=== PATIENT | female | born 2005 | race Caucasian/White ===

== ENCOUNTER 2024-11-20 18:19 | Emergency (ER) | payer OTHER, SELFPAY ==
[2024-11-20 18:19] VITALS: BP 136/85; PULSE 98; RESP 14; TEMP 36.1; O2SAT 98; BMI 33.2
[2024-11-20 19:19] VITALS: BP 119/74; O2SAT 99
[2024-11-20 20:00] VITALS: BP 105/60; PULSE 90; RESP 16; O2SAT 97
--- NOTE | 2024-11-20 20:03 | EDS_ITS ---
HPI HPI - Psych History of Present Illness Chief Complaint: Suicidal Informant: patient Onset/Context/Timing Onset: Days Context: Gradual Onset Timing: Waxes and wanes Worsened by: - (Nothing) Relieved by: Nothing Associated Symptoms Associated Symptoms - Psych: Positive for Depressed, Change in Eating, Change in sleeping and Suicidal Thoughts; Negative for Paranoia, Visual Hallucinations or Auditory Hallucinations Specific plan (suicidal thought): Overdosing on medication Narrative Narrative: Patient presents with suicidal ideations that have been gradually getting worse over the past several weeks to months. Patient states she has had thoughts of taking medications. Patient states she has been feeling depressed. Patient states nothing makes it better and nothing makes it worse. Patient states she feels overwhelmed at times. Patient states she has not been sleeping as much as normal. Patient states that her eating habits have also changed. Patient states that she will go without eating for a long period and then will eat a lot or a short period of time. [facility] Medical History Anxiety Depression Home Medications ?Medication ?Instructions ?Recorded ?Last Taken ?Type NK 11/20/24 Unknown History Allergy/AdvReac Type Severity Reaction Status Date / Time No Known Allergies Allergy Verified 11/20/24 18:19 no surgical history Social History (Updated 11/20/24 @ 22:[address] Jose Mejia, DO) Smoking Status: Unknown if ever smoked alcohol intake: current alcohol intake frequency: a few times a month substance use type: marijuana ROS ROS ED Constitutional Constitutional ED: Denies chills or fever(s) Eyes Eyes: Denies blurry vision or change in vision ENT ENT ED: Denies rhinorrhea or sore throat Cardiovascular Cardiovascular: Reports chest pain; Denies palpitations Respiratory/Chest Respiratory/Chest: Denies cough or dyspnea Gastrointestinal Gastrointestinal: Reports nausea; Denies vomiting Genitourinary Genitourinary ED: Denies dysuria or hematuria Musculoskeletal Musculoskeletal: Reports back pain; Denies neck pain Integumentary Denies abscess or rash Neurologic Neurologic: Reports headache(s); Denies weakness Psychiatric Psychiatric: Reports depression, suicidal ideation and suicidal thoughts Allergic/Immunologic Allergic/Immunologic ED: Denies mouth swelling or urticaria EXAM Physical Exam Const Vital Signs: 11/20/24 18:19 Temperature 97 F L Temperature Source Temporal Pulse Rate 98 Respiratory Rate 14 Blood Pressure 136/85 H Blood Pressure Mean 102 Pulse Ox 98 Oxygen Delivery Method Room Air Positive well nourished and well developed General Appearance ED: well developed and NAD HEENT Reports moist mucous membranes normocephalic Neck supple and no JVD Resp normal respiratory effort and clear to auscultation bilaterally Cardio Rate: regular rate Rhythm: regular rhythm GI non-tender and non-distended Palpation: soft Neuro oriented x3, CN's II-XII intact bilaterally and no sensory deficits noted Ren Coma Scale: document GCS findings Spontaneous Obeys Commands Oriented 15 Sensorium / Orientation: alert Motor Exam: strength 5/5 throughout Psych Appearance: grossly normal and appropriate Attitude: calm Activity / Motor Behavior: appropriate eye contact Speech: normal speech Mood & Affect: depressed and flat affect Thought Content: No delusion(s) and No hallucination(s) MDM MDM MDM Narrative Medical decision making narrative: Medical screening labs will be obtained. CBC will be obtained to assess for leukocytosis and anemia. Basic metabolic profile will be obtained to assess for electrolyte abnormality and renal function. Serum hCG will be obtained to assess for . Serum alcohol level will be obtained to assess for alcohol intoxication. Urine drug screen will be obtained to assess for substance abuse. Lab Data Attestation: I reviewed the patient's lab results. Lab results narrative: CBC was reviewed and was within normal limits. Basic metabolic profile was reviewed and was within normal limits. Serum hCG was reviewed and was negative. Urine drug screen was reviewed and was positive for cannabinoids. Serum alcohol level was reviewed and was less than 10.1. Management Discussion w/another healthcare provider: Behavioral health Treatment and Re-Evaluation Narrative: Patient is medically cleared for crisis evaluation. Crisis counselor was in to evaluate the patient. Crisis counselor felt the patient could be discharged home with a safety plan. Patient's partner will control her medications. Patient will be referred to [facility] for follow-up care. Patient and partner understood and were agreeable with the plan. All questions were answered. Discharge Plan Triage Chief Complaint: Suicidal ED Provider: Jose Mejia Dx/Rx/DC Orders Clinical Impression: Depression, Suicidal thoughts Instructions: ED Depression Prescriptions: No Action NK Primary Care Provider: Care Physician,No Primary Referrals: Counseling,Center [Group of Physicians] - As soon as possible Care Physician,No Primary [Primary Care Provider] - Print Language: Ghanaian Disposition Disposition: Home, Self Care
[2024-11-20 20:12] LABS: Hematocrit 42.6 % (37-47); Hemoglobin 14.4 g/dL (12.0-15.0); Immature Granulocytes Count 0.030 X10^3/uL (0.0-0.0); Mean Corp Hgb Conc 33.8 g/dL (32-36); Mean Corpuscular Volume 84.0 fL (81-99); Mean Platelet Vol. 10.0 fl (6.2-12.0); NRBC Flagged by Analyzer 0 % (0-5); Platelet Count 306 K/mm3 (150-450); RBC Distribution Width CV 12.4 % (11.6-14.6); RBC Distribution Width SD 37.7 fl (35.1-43.9); Red Blood Count 5.07 M/mm3 (4.2-5.4); White Blood Count 9.7 K/mm3 (4.4-11.0)
[2024-11-20 20:18] LABS: Internal QC Validated? YES +Cl - CLEAR BKGD; Pregnancy, Serum, hCG Quali. NEGATIVE Negative; Record Kit Lot#, Serum Preg. 962302
[2024-11-20 20:29] LABS: Alcohol, Blood (Medical)-Serum < 10.1 mg/dL (<=10.0); Anion Gap 15 (5-15); BUN 12 mg/dL (4-19); BUN/Creat Ratio 15.2 RATIO (10-20); Calcium,Total 10.4 mg/dL (7.6-11.0); Carbon Dioxide 21.2 mmol/L (21.0-32.0); Chloride 104 mmol/L (98-108); Estimated Creatinine Clearance 111.95 ml/min (50-250); Glucose 97 mg/dL (70-99); Potassium 3.7 mmol/L (3.3-5.1)
[2024-11-20 20:41] LABS: Barbiturate Urine NEGATIVE (< 200 ng/mL); Benzodiazepine Urine NEGATIVE (< 200 ng/mL); PCP Urine NEGATIVE (< 25 ng/mL); THC Urine PRESUMPTIVE POSITIVE (< 50 ng/mL)
--- NOTE | 2024-11-20 20:59 | PCA ---
CHART FAXED, CRISIS CALLED
[2024-11-20 21:00] VITALS: BP 119/77; PULSE 86; O2SAT 97
[2024-11-20 22:00] VITALS: BP 119/70; O2SAT 98
[2024-11-20 22:38] VITALS: BP 107/57; PULSE 86; RESP 16; TEMP 36.1; O2SAT 97
== END 2024-11-20 22:42 | disposition home or self-care (01) ==
PROVIDERS: Emergency Provider Emergency Medicine; Visit Provider Emergency Medicine
DX: R45.851 Suicidal ideations (principal); F32.A Depression, unspecified; Z79.899 Other long term (current) drug therapy
CPT/HCPCS: 80048; 80307; 82077; 84703; 85025; 99283

== ENCOUNTER 2024-11-24 08:00 | Outpatient (RCR) | payer OTHER, SELFPAY ==
--- NOTE | 2024-11-24 09:05 | BH.SGPN.GN ---
Behaviors/Verbalizations/Mental Status: [] Eye contact is good. Motor activity is appropriate. Appearance is casual. Speech is Appropriate. Mood is euthymic. Affect is full. Thoughts are linear and logical. No evidence of psychosis. Reviewed daily check in sheet and pt reports 4/5 for suicidal thoughts and 3/5 for intent. Risk assessment completed prior to group. No imminent danger. Client Response/Progress/Benefit: [] Pt was an active participant in group discussions. Attentive. Daily symptom tracker notes 4/5 for depression/anxiety. This was pt?s first day in IOP level of care and she briefly introduced herself and her goals for treatment. States? ?I?ve had a hard time recently?. Admits to she ?stopped? going to mental health treatment in the past several month and then recently began to decompensate to the point where ?I needed immediate help?. Primary concerns are anxiety, stress, and depression. No progress noted as this was her first day. Benefited from group support, encouragement, and feedback. Will continue in [facility] to maintain safety, prevent decompensation, and increase healthy coping. Narrative Note: [] Behaviors/Verbalizations/Mental Status: [] Eye contact is good. Motor activity is appropriate. Appearance is casual. Speech is Appropriate. Mood is euthymic. Affect is full. Thoughts are linear and logical. No evidence of psychosis. Reviewed daily check in sheet and no reports of suicidal ideations or intent. Client Response/Progress/Benefit: [] Narrative Note: []
--- NOTE | 2024-11-24 10:10 | BH.SGPN.GN ---
Behaviors/Verbalizations/Mental Status: [] Eye contact is good. Motor activity is appropriate. Appearance is casual. Speech is Appropriate. Mood is anxious. Affect is congruent. Thoughts are linear and logical. No evidence of psychosis. Client Response/Progress/Benefit: [] Pt engaged in session AEB listening attentively to others and providing input throughout. Pt engaged in activity, able to connect how it can be uncomfortable and difficult to practice acceptance when situations are out of one?s own control. Identified what they are struggling to accept in personal life. Worked with peer group to define acceptance and identify the benefits that acceptance can bring. Benefits included; reduce stuckness, reduced stress, helps one to focus on situations we can change, and decreased negative self-talk. Seemed to benefit from increased awareness of the meaning as well as the importance of acceptance. Will continue in IOP to decrease anxious avoidance, improve healthy coping, and prevent decompensation.
--- NOTE | 2024-11-24 11:15 | BH.SGPN.GN ---
Behaviors/Verbalizations/Mental Status: []Pt alert and oriented, casually dressed and groomed. Eye contact good. Motor activity appropriate. Speech within normal limits. Affect congruent, mood content. Thoughts linear, logical, no signs of hallucinations or delusions. Client Response/Progress/Benefit: [] Pt responded well to session AEB taking notes and contributing to discussion throughout. Pt engaged as group continued discussion on acceptance and the mental health benefits of practicing acceptance. Pt and peers identified what makes acceptance challenging and pt completed a self-reflection exercise on what is hard to accept in pt's life. Pt identified something that is currently hard to accept as finding a new place to live. Client stated by not accepting this it leads to anxiety and stress. Group identified strategies to increase acceptance. Pt noted wanting to work on trying to find positives in the situation as a strategy for improving acceptance in this area. Pt appeared to benefit from gaining insight and learning strategies to increase acceptance. Pt will continue IOP tx to improve view of self, increase mood stability, and prevent decompensation. Narrative Note: []
--- NOTE | 2024-11-24 15:56 | BH.MTP_ITS ---
Master Treatment Plan Patient Information Program Physician:: Dr. Winston Primary Therapist:: Amalia Yuan [facility] Psychiatric Diagnoses Psychiatric Diagnoses:: MDD (major depressive disorder), recurrent episode, severe Generalized Anxiety Disorder Diagnosis Code(s):: F33.2 Estimated LOS Estimated LOS (in weeks):: 6 Problem/Goal #1 Problem/Goal #1 Stated Goal:: Stabilize anxiety level while increasing ability to function on daily basis. Description of Barriers: Potential barriers to treatment include: distorted thoughts, low motivation, low energy, and avoidance of anxious situations. Functional Impact: Patient was seen in [facility] ED for SI and worsening depression 11/20/2024 and assessed by [facility] crisis team and was referred to [facility]. PT has struggled with her mental health since high school and had further decline starting last January 2024 after her fianc? attempted suicide and has slowly decompensated since that time. Also had increased anxiety triggered by starting a new job July 2023 and around the same time patient stopped taking their medicine due to loss of insurance coverage. Pt endorses low motivation, anhedonia, poor concentration, excessive guilt, poor appetite, and decreased sleep. Objectives Objective #1: Stated Objective: Client will learn and implement 2-3 calming skills to reduce overall anxiety and manage anxiety symptoms. Interventions: Therapist and group sessions will help client identify physiological warning signs of anxiety, increase awareness of thoughts that increase anxiety, and identify behaviors that reinforce anxious symptoms. Group and individual counseling will teach client calming skills to help manage anxious symptoms. Discharge Criteria: Client will have achieved this goal when can verbalize at least 2 calming skills and reports skills successfully help reduce anxious symptoms. Target Date: 01/05/25 Review Date: 12/22/24 Objective #2: Stated Objective: Client will identify 2-3 anxiety triggers and 2 coping skills to use when feeling anxious. Interventions: Therapist will assist client in exploring what triggers anxiety and teach client coping strategies to effectively manage anxiety symptoms. Discharge Criteria: Client will have met this goal when can identify at least 2 triggers to anxiety and verbalize two healthy ways to cope with feelings of anxiety. Target Date: 01/05/25 Review Date: 12/22/24 Problem/Goal #2 Problem/Goal #2 Stated Goal:: Client will decrease depression, low motivation, and passive thoughts of due to Major Depression Disorder through Intensive Outpatient Program. Description of Barriers: : Potential barriers to treatment include: distorted thoughts, low motivation, low energy, and avoidance of anxious situations. Functional Impact: Patient was seen in [facility] ED for SI and worsening depression 11/20/2024 and assessed by [facility] crisis team and was referred to IOP. PT has struggled with her mental health since high school and had further decline starting last January 2024 after her fianc? attempted suicide and has slowly decompensated since that time. Also had increased anxiety triggered by starting a new job July 2023 and around the same time patient stopped taking their medicine due to loss of insurance coverage. Pt endorses low motivation, anhedonia, poor concentration, excessive guilt, poor appetite, and decreased sleep. Objectives Objective #1: Stated Objective: Client will learn and utilize 2-3 healthy coping strategies to manage depressive symptoms. Interventions: Therapist will utilize CBT techniques to assist client with understanding the connection between thoughts, feelings and behaviors. Education will be provided on behavioral activation. Therapist will assist client in learning internal coping strategies to manage depressive symptoms, along with helping client identify triggers. Discharge Criteria: Client will have achieved this goal when can verbalize and has practiced at least 2 healthy coping strategies that successfully manage depressive symptoms. Target Date: 01/05/25 Review Date: 12/22/24 Objective #2: Stated Objective: Client will identify and replace 2-3 negative thinking patterns that reinforce depressive symptoms. Interventions: Therapist will assist client in developing an awareness of the cognitive messages that reinforce depressive thinking. Therapist will also assist client in challenging negative thinking patterns. Discharge Criteria: Client will have achieved this goal when can identify at least 2 negative thinking patterns, replace negative thinking with more positive, affirmative messages and state no longer having thoughts of hurting self. Target Date: 01/05/25 Review Date: 12/22/24
--- NOTE | 2024-11-25 08:24 | PCM.BH.PSYEV ---
Intake Vital Signs 11/20/24 18:19 11/25/24 08:24 11/25/24 09:45 Height 1.55 m 1.55 m 1.55 m Weight: 74.843 kg BP 121/75 H Pulse 69 Intake Visit Reasons: est care MDD and SI Allergies No Known Allergies Allergy (Verified 11/25/24 09:47) Medications ?Medication ?Instructions ?Recorded ?Confirmed ?Type fluoxetine 10 mg capsule (Prozac) 10 mg PO DAILY #30 caps 11/25/24 Rx PFSH () Medical History Anxiety Depression Social History (Updated 11/20/24 @ 22:[address] Jose Mejia, DO) Smoking Status: Unknown if ever smoked alcohol intake: current alcohol intake frequency: a few times a month substance use type: marijuana HPI () History of Present Illness History provided by: patient Chief complaint: Hx GETACHEW, MDD, SI HPI: Jessica is a 19y/o female who uses they/them pronouns who presented to [facility] IOP program for further evaluation and treatment of depression, anxiety, SI. Patient was seen in [facility] ED for SI and worsening depression 11/20/2024 and assessed by [facility] crisis team and was referred to IOP. Jessica has struggled with her mental health since high school and had further decline starting last January 2024 after her fianc? attempted suicide and has slowly decompensated since that time. Also had increased anxiety triggered by starting a new job July 2023 and around the same time patient stopped taking their medicine due to loss of insurance coverage. Reports being pretty tired today and that they have had low mood and low energy with a lot of stressors as above. Did recount with me that last January? attempted suicide when she had to get them to the ED and has had nightmares about that since and subsequently stopped going to therapy and stopped taking care of themselves. Then stopped Lexapro as above. Notes the Lexapro made them less anxious but those around patient thought it made them more aloof and that they had lower motivation. Given all of this in combination with job stress their anxiety has been very high. Anhedonia/Decreased interest: Was present, beginning to enjoy things again like spending time with friends and picking up hobbies again Appetite: Poor appetite in association with anxiety Sleep: Not sleeping as much as before Energy: Has not noticed a drastic change in energy despite some decrease in sleep Concentration: Easily distracted Memory: When anxious it causes memories to be fuzzy Guilt: Feels very guilty a lot of the time even if there are things they don't feel they should feel guilty about, they report saying I am sorry very often to the point their partner has pointed out Crying spells: Has had more crying spells recently SI: Not in the moment, has been having some thoughts of harming themselves this past week, mostly thoughts of not wanting to exist, no active thoughts HI: No AH: No VH: No Psychosis: No Mariama: Went through periods where they didn't need to sleep much during beginning of high school but isn't sure if there were any activities out of character, says they don't really remember the first two years of high school Anxiety: We would be here all day if I had to make a list [of things that make them anxious]. 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 Sometimes the episodes occur randomly sometimes they occur due to stressors OCD: Sometimes asks questions repetitively but no additional criteria Eating d/o hx: No PTSD: Has been having nightmares and flashbacks from berna's suicide attempt and will avoid certain streets they drove down when going to the hospital at time as that can be triggering, symptoms have not been improving Current psychiatric medications: None Past psychiatric treatment Hx: -First age experiencing symptoms: Has experienced symptoms since at least high school -Previous diagnoses:GETACHEW, depressive tendencies -Psychiatrist: Stopped following after the suicide attempt from their fiance -Therapist: Was following with 1 but stopped around 6 months ago with all of the stressors going on -Psychiatric hospitalizations: Denies -Suicide attempts: Denies -NSSI: Sometimes scratching or hitting self -Medication trials: Only lexapro 10mg, no other medication trials. As above this helped with anxiety but caused low motivation and made them aloof Medical Hx: -Medical problems: Denies -Surgeries: No -Allergies: No -Medications:None Substance use Hx: -Alcohol: Socially -Drugs: Uses marijuana 5 days per week, more so recently since they stopped taking their medications, never uses at work, only occasionally in the evenings -Rehab: No -Tobacco use: No Family Hx: -Mental illness: Dad takes some sort of SSRI, possible bipolar disorder in grandma and/or great grandma, younger sister and older sister had to be psychiatrically hospitalized, great-grandmother also was hospitalized multiple times -Suicide attempts or completions: They are unsure but thinks there have been -Substance Use: A lot of alcoholics in the family on mom's side. Reports mom was an alcoholic but presently is not drinking -General medical conditions: Dad has some liver issues, diabetes in grandparents, grandpa with lung cancer Psychosocial: -Born/raised: [place], [place] -Childhood: Not horrible. Reports memory starts around 2, remembers losing their house then had to move in with grandma who was a hoarder so has some memories of a stressful childhood, remembers being someone lonely, not into sports and couldn't really have many people over because she lived with grandma. Also notes mental health struggles and that family and teachers seem to brush this off and they were unable to get help -Parents: [place] like her parent prioritized her sisters physical health over her mental health. Mom and dad are now -Siblings: Has a half sister 10 years older and a sister four years younger who she grew up with, starting to have a better relationship with younger sister but does report jealousy over her parents taking her mental health seriously but not patient's -Current living situation and location: Living in [place] with grandma, mother, sister, and significant other, Js, a cousin still lives with them, too. 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, likes her colleagues but gets very anxious over her job -Yazidism affiliation: Denies, vaguely spiritual, vaguely agnostic - hx: No -Access to guns: No -Legal problems: No Medical ROS: General: Denies fever HENT: Denies headache EYES: Denies acute changes in vision Resp: denies shortness of breath Cardiac: Denies chest pain GI: denies changes in bowel, denies nausea/vomiting : Denies changes in urination MSK: Denies weakness Neuro: Denies any numbness/tingling Heme: Denies any bleeding or bruising Skin: Denies rashes Psychiatric: As above Exam () Mental Status Exam- Psych () Appearance casually dressed, adequately groomed and no apparent distress Attitude cooperative and calm Activity/Motor Behavior MSE activity/motor behavior finding no adventitious movements Speech regular rate and regular volume Mood anhedonic Affect full range Thought Process linear and logical Thought Content no delusions and no hallucinations Suicidal Ideation none Homicidal Ideation none Attention intact Concentration intact Sensorium/Orientation awake and alert Memory/Cognition intact Insight fair Judgement fair Assessment & Plan () Assessment & Plan (1) MDD (major depressive disorder), recurrent episode, severe: Plan: Depressed mood, intermittent SI, decreased appetite, poor sleep, poor concentration, crying spells, anhedonia. Suspect patient has MDD as well as GETACHEW. Agreeable to trialing Prozac, will start at low-dose and uptitrate as tolerated, discussed black box warning for SSRI and patient verbalized understanding. (2) GETACHEW (generalized anxiety disorder): Plan: Patient anxiety in multiple aspects of their life that has persisted greater than 6 months, this does cause difficulty with concentration and sleep and being on edge. Will be starting Prozac, discussed black box warning for SSRIs in those under 24 and patient verbalized understanding - Will monitor for symptoms meeting criteria for panic disorder, patient does not meet full criteria but certainly has aspects of the diagnosis, will be treating with Prozac as above which should help all of the above symptoms Medications: New fluoxetine 10 mg PO DAILY 30 caps 0RF Plan Detail Assessment: The patient will begin IOP in Behavioral Health at [facility]. The program's structure, support, education, and therapy aim to prevent deterioration of symptoms and avoid the need for PHP or inpatient hospitalization. I have a reasonable expectation that the patient will make practical improvements in their presenting symptoms and will be discharged to a lower level of care. Charges/Coding Multi Select Codes Behavior Health Behavior Health Psychiatric Evaluation: [id number] Psych Diag Exam w/ Medical Services
--- NOTE | 2024-11-25 08:24 | BH.DR.ITP ---
Initial Treatment Plan Patient Information Visit Information: ADMISSION DATE: EXPECTED LOS: 6-8 weeks Diagnoses:: MDD, GETACHEW Problems/Symptoms Problem #1:: GETACHEW Symptom:: anxiety in multiple aspects of their life that has persisted greater than 6 months, this does cause difficulty with concentration and sleep and being on edge Symptom:: MDD Problem #2:: Depressed mood, intermittent SI, decreased appetite, poor sleep, poor concentration, crying spells, anhedonia
--- NOTE | 2024-11-25 09:20 | BH.NA ---
Physical Data Vital Signs Pulse Rate: 69 Blood Pressure: 121/75 Height/Weight Height: 1.55 m Weight:: 74.843 kg Weight in Pounds: 165.0 lbs Functional Assessment Sleep Pattern Describe any problems with sleeping: Client states they have been sleeping 5-8 hours per night. Sensory/Communication Assess Vision Problems Do you have any vision problems?: Glasses Communication Problems Do you have difficulty understanding what people are saying?: No Medical Problems/History Pain Assessment Do you have acute or chronic pain?: No Surgical History Surgical History Have you had any surgeries? If so, list type and date:: No Substance Abuse Substance Abuse Please describe substance abuse in the last 30 days:: Client states they drink alcohol 1-2 times per month socially. Client denies tobacco use. Client uses marijuana about 5 times per week. Client drinks 2-3 cans of pop per day with caffeine. Mental Status Summary Mental Status Significant Findings/Observations on Appearance and Mood:: Client is alert and oriented x 4. Client is casually groomed with good hygiene. Client is cooperative with assessment. Client makes good eye contact. Clients voice has normal rate and volume. Client has appropriate affect. Client makes logical associations and has normal processing. Client denies delusions/hallucinations. Client reports some passive SI at times, but denies active thoughts/plan/intent. Suicide Assessment Suicidal Ideation Are you currently or have you been suicidal in the past?: Yes Suicidal Intentional Rating Scale (SIRS): Suicidal thoughts (past) (passive thoughts of at times, denies plan/intent) Physician Notification Past Psychiatric History MH Treatment Hx Past Psychiatric Medications:: Lexapro (10mg, was on for about 1 year and stopped taking earlier this year) Age of first mental health symptoms: Client reports symptoms of anxiety/depression since high school. Client started medication for mental health around age 18. Describe (age, circumstance, etc) any past hospitalizations: None. Current providers for mental health treatment (counselor, psychiatrist, manager case, etc.): has had a therapist and psychiatrist in the past but none currently Fall Risk Assessment Age Age: Less than 60 Mental Status Mental Status: Willing & able to ask for assistance when needed Physical Status Physical Status: No problems Impairments Impairments: None Elimination Elimination: Continent AND independent Gait or Balance Gait or Balance: Walks independently Hx of Falls History of falls in the past 6 months: No known history Medications/Substances Medications/substances used within the past 24 hours or ordered to administer: None of the medications/substances list above Total Score Total Points:: 0 RN Summary of Impressions Impressions Recommendations Impressions: Psychiatric Issues: major depressive disorder, anxiety Level of Care How do the client's current symptoms and functional deficits support need for this level of care?: Client was referred to IOP after seeing Crisis in the [facility] ER on 11/20/24 after having suicidal thoughts. Client reports feeling an increase in stress after her partner had a suicide attempt in January 2024. Client reports guilt and worry since then. 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 Client reports occasional panic attacks. Client states since the ER visit, some passive thoughts of have been occurring but denies plan/intent. IOP will promote gains and prevent further decompensation while providing social support and skills training. Nutritional Screen Height/Weight Height: 1.55 m Weight:: 74.843 kg Weight in Pounds: 165.0 lbs Nutrition Screening Normal Weight: 74.843 kg Normal/Usual Weight in Pounds: 165.0 lbs Have you lost weight without trying: No Have you been eating poorly because of a decreased appetite: No Recently been on tube feeds, TPN, or have any nutritional access device in place: No Have any large open wounds or wounds that are not healing: No Calculated Weight Change: 0 Change in weight Score: 0 MST Screening Tool Score: 0
[2024-11-25 09:45] VITALS: BP 121/75; PULSE 69
--- NOTE | 2024-11-25 10:10 | BH.SGPN.GN ---
Behaviors/Verbalizations/Mental Status: []Pt alert and oriented, casually dressed and groomed. Eye contact good. Motor activity appropriate. Speech within normal limits. Affect congruent, mood depressed. Thoughts linear, logical, no signs of hallucinations or delusions. Client Response/Progress/Benefit: [] Pt responded well to session AEB sharing and listening attentively to others. Group provided examples of types of support (professional, pets, hobbies, community, spouse, benoit, etc) as well as benefits of having social support, including: validation, get perspective, and accountability. Pt also participated in group discussion regarding the barriers to accessing support and pt?s barriers included; feeling ?annoying,? being scared to open up, and over relying on one support. Pt participated in experiential activity illustrating the impact communication, boundaries, and patience play in creating healthy support systems. Pt appeared to benefit from increased knowledge of the benefits of social support and greater self-awareness. Pt to continue IOP to prevent decompensation, improve daily functioning, and combat negative thinking. ?? Narrative Note: []
--- NOTE | 2024-11-25 11:15 | BH.SGPN.GN ---
Behaviors/Verbalizations/Mental Status: []Client alert and oriented, casually dressed and groomed. Eye contact good. Motor activity appropriate. Speech within normal limits. Affect congruent, mood dysthymic. Thoughts linear, logical, no signs of hallucinations or delusions. Client Response/Progress/Benefit: [] Pt participated throughout AEB contributing to discussion, providing examples, and taking notes. Pt provided input during discussion on the types of support our supports can provide. Pt able to identify current support system and barriers that get in the way of using supports. Pt reported after identifying what type of supports pt receives, pt gained awareness that pt could benefit from more social support by putting more effort into consistently reaching out to supports. Pt seemed to benefit from identifying the type of support pt needs to work on improving. Pt recommended to continue IOP tx to promote increase positive self-talk, improve healthy communication, and prevent decompensation. Narrative Note: []
--- NOTE | 2024-11-29 09:05 | BH.SGPN.GN ---
Behaviors/Verbalizations/Mental Status: [] Eye contact is good. Motor activity is appropriate. Appearance is casual. Speech is Appropriate. Mood is anxious. Affect is congruent. Thoughts are linear and logical. No evidence of psychosis. Reviewed daily check in sheet and pt reports 2/5 for suicidal ideations and 1/5 for intent. This has been close to baseline for patient. Meeting with individual therapist today. Client Response/Progress/Benefit: [] Pt was an active participant in group discussions. Attentive. Daily symptom tracker notes 3/5 for depression and irritability. Shared she was prescribed and started a new medication this weekend. She is hopeful. Discussed recent decompensation after stopping a medication. Low energy and motivation this weekend. I didn't do much this weekend. Struggled to identify mental health wins and healthy habits. Isolative and avoidance behaviors. She shared anxiety around her job which she is currently on leave from. 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 This can leave to significant anxiety and fear that shw will make a mistake. Overall she loves the work environment and believes the job will lead to future opportunities however is struggling with the anxiety it causes. No progress noted. Benefited from group support, encouragement, and feedback. Will continue in IOP to maintain safety, prevent decompensation, increase healthy skills, and improve functioning to return to work. Narrative Note: []
--- NOTE | 2024-11-29 10:10 | BH.SGPN.GN ---
Behaviors/Verbalizations/Mental Status: []Pt alert and oriented, neatly dressed and groomed. Eye contact good. Motor activity appropriate. Speech within normal limits. Affect constricted, mood calm. Thoughts linear, logical, no signs of hallucinations or delusions. Client Response/Progress/Benefit: [] Pt was an active participant AEB taking notes and engaging in group activity. Connected with the topic of pitfalls and listened to group discussion on barriers that prevent from choosing a healthier path to mental wellness. Group worked together to identify examples of personal pitfalls. These examples included; shutting down, not asking for help, negative thinking patterns, avoidance, and isolation. Pt benefited from group as Pt learned to better identify potential barriers to improving mental health symptoms. Identified personal barrier of negative thinking and avoidance. Pt will continue IOP tx to prevent decompensation, improve daily functioning, and increase distress tolerance. ? Narrative Note: []
--- NOTE | 2024-11-29 11:10 | BH.SGPN.GN ---
Behaviors/Verbalizations/Mental Status: []Client alert and oriented, casually dressed and groomed. Eye contact good. Motor activity appropriate. Speech within normal limits. Affect congruent, mood content. Thoughts linear, logical, no signs of hallucinations or delusions. Client Response/Progress/Benefit: [] Pt receptive of session, engaged throughout AEB Pt actively listening and contributing to discussion as well as taking notes.? Pt participated in the experiential activity and did well to communicate ideas with peers and manage emotions. Pt attentive as group processed how the emotions and perspective of the group impacted the activity. Pt admitted that they were frustrated at times, but pt was able to thought challenge and take deep breaths to complete the activity with peers. Group worked together to identify different coping skills to help manage pitfalls. Pt identified a pitfall they struggle with as ?fear of failure?. Pt plans to work on their pitfall by challenging themselves to reach out for help when needed, as well as identify small areas of progress. Benefited from identifying personal pitfalls and strategies to overcome these pitfalls. Pt will continue IOP tx to prevent decompensation, improve daily functioning, and increase healthy communication. ? Narrative Note: []
--- NOTE | 2024-11-29 13:35 | BH.MDN ---
Multi-Disciplinary Note Note 60-min Individual: Time Started:: 12:00 Date: 11/29/24 Purpose of session/treatment goals addressed:: Purpose of session was to build rapport, gather background information, and solidify treatment goals. Eye Contact:: Good Motor Activity:: Restless Appearance:: Casual Speech:: Appropriate Mood:: Anxious Affect:: Congruent Thoughts:: Linear, Logical and No evidence of hallucinations/delusions noted Staff Interventions:: CBT techniques, rapport building, strengths perspective, treatment planning and goal setting Client Response:: Client goes by they/them pronouns. Note will reflect preferred pronouns. Client reported so far they are enjoying IOP and have found benefit to being in a group format. Client stated they find it helpful to hear from other perspectives. Client reported seeking treatment due to being seen in [facility] ED for SI and worsening depression 11/20/2024 and assessed by [facility] crisis team and was referred to [facility]. Client reported decline in mental health starting last January 2024 after their fianc? attempted suicide and has slowly decompensated since that time. Client stated July 2023 started a new job that has triggered significant anxiety. Client reported their anxiety has been impacting work functioning and currently hasn't been to work in over a week due to anxiety. Client stated they tend to utilize distraction skills as a way to cope with her emotions. Client admitted they can spend copious amounts of time on social media and their phone. Client recognizes this tends to provide the short term relief, but not long lasting. Client reported they also enjoy playing video games and doing various types of crafting/drawing/etc. Client stated they haven't been as creative lately due to feeling more difficulty with concentration. Client reported a goal they have while in IOP is to gain improve awareness of reasons behind their emotional experience. Client stated would also like to learn better ways to manage their symptoms and emotions. Client reported they have good insight in certain areas, but lack the ability to know what to do to manage the symptoms. Client receptive to learning about guided meditation. Client stated they do use 4-4-4 breathing as a way to calm down and finds it helpful. Client willing to complete goal tracker that they will fill out every time come to IOP. client identified three things to track which includes: brushing teeth daily, cooking 3-4 meals at home per week, and completing one drawing at least once a week. Risks/Concerns:: Denies current suicidal ideation, plan, or intention to date. future oriented. Progress Toward Goals/Plan:: Progress noted with client reporting benefit from group counseling, reporting improved energy today, and not reporting suicidal thoughts today. Client anxiety has been impacting ability to function at work and they have missed a week of work due to MH. Client is unsure they will be able to return to this job due to the negative impact it has on their mental health. Client stated does have constant worries about everything. Client reported More panic attacks recently. Plan is for client to continue IOP to increase healthy coping, improve daily functioning, and prevent decompensation. Time Stopped:: 13:00
--- NOTE | 2024-11-30 09:05 | BH.SGPN.GN ---
Behaviors/Verbalizations/Mental Status: [] Eye contact is good. Motor activity is appropriate. Appearance is casual. Speech is Appropriate. Mood is euthymic. Affect is full. Thoughts are linear and logical. No evidence of psychosis. Reviewed daily check in sheet and pt reports 2/5 for suicidal thoughts and 1/5 for intent. This has been pt's baseline since admission and risk assessment. No imminent danger. Client Response/Progress/Benefit: [] Pt was an active participant in group discussion. Attentive. Daily symptom tracker notes 3/5 for depression and anxiety. SI-2, I-1. She was able to identify mental health wins and healthy habits. Re-engaging in a social support network. She has also returned to creative drawing. Practicing opposite-action. Feeling is ?tired? today. Progress noted. Benefited from group support, encouragement, and feedback. Will continue in IOP to prevent decompensation, increase healthy coping, and improve functioning Narrative Note: []
--- NOTE | 2024-11-30 10:10 | BH.SGPN.GN ---
Behaviors/Verbalizations/Mental Status: [] Pt alert and oriented, casually dressed and groomed. Eye contact good. Motor activity appropriate. Speech within normal limits. Affect congruent. mood dysthymic and anxious. Thoughts linear, logical, no signs of hallucinations or delusions. Client Response/Progress/Benefit: [] Pt was an engaged participant AEB listening attentively to others, taking notes, and providing feedback in group discussions. Attentive during psychoeducation AEB by note taking. Pt worked along with peers in groups to define inappropriate guilt and appropriate guilt. Group worked together to provide examples of both inappropriate and appropriate guilt. Group identified a lashing out and breaking something as appropriate guilt examples. Group identified setting a boundary and needing help as having inappropriate guilt about. Pt able to connect impact inappropriate guilt can have on MH and overall functioning. Noted that it has negatively impacted their ability to reach out or ask for help. Benefited from increased awareness of guilt and the differences between appropriate and inappropriate guilt. Pt to continue IOP tx to prevent decompensation, gain healthy coping skills, and increase communication skills. Narrative Note: []
--- NOTE | 2024-11-30 10:10 | BH.SGPN.GN ---
Behaviors/Verbalizations/Mental Status: [] Pt alert and oriented, casually dressed and groomed. Eye contact good. Motor activity appropriate. Speech within normal limits. Affect congruent, mood anxious. Thoughts linear, logical, no signs of hallucinations or delusions. Client Response/Progress/Benefit: [] Pt participated in group discussions. Attentive during psychoeducation on the CBT Buckner (Thoughts, Behaviors, Emotions). Engaged in group discussion on how thoughts and behaviors can contribute to maintaining adverse feelings, such as depression, anxiety, and irritability. Completed worksheet in which pt identified obstacles and/or thoughts that are keeping them stuck. Shared obstacles that included; negative self-talk, low motivation, and racing thoughts. Pt benefited from increased awareness of the basis of CBT therapy as well as specific thoughts that are impacting pt's progress. Will continue in IOP to prevent decompensation, increase healthy coping, and improve functioning. Narrative Note: []
--- NOTE | 2024-11-30 11:10 | BH.SGPN.GN ---
Behaviors/Verbalizations/Mental Status: []Eye contact is good. Motor activity is appropriate. Appearance is casual. Speech is Appropriate. Mood is engaged. Affect is congruent. Thoughts are linear and logical. No evidence of psychosis. Client Response/Progress/Benefit: [] Pt was an engaged participant AEB listening attentively to others and providing input throughout group. Pt along with group members, identified strategies to manage inappropriate guilt. Identified a personal example of inappropriate guilt as ?feeling responsible for other people?s feelings.? Pt wants to work on combatting inappropriate guilt by reminding myself that two things can be true.? Pt seemed to benefit from learning about strategies to manage appropriate and inappropriate guilt. Pt to continue IOP tx to prevent decompensation, improve daily functioning, and combat distortions. Narrative Note: []
--- NOTE | 2024-12-01 09:00 | BH.SGPN.GN ---
Behaviors/Verbalizations/Mental Status: [] Eye contact is good. Motor activity is appropriate. Appearance is casual. Speech is Appropriate. Mood is dysthymic. Affect is congruent. Thoughts are linear and logical. No evidence of psychosis. Reviewed daily check in sheet and no reports of suicidal ideations or intent. Client Response/Progress/Benefit: [] Pt was an somewhat active participant in group discussions. Attentive. Did well to identify 2 mental health wins including taking their meds more consistently. Stated that their fiance has been helping keep them accountable. Additional win noted as making plans to spend time with her dad and sister this weekend. Shared that they are big supports for pt. Current stressor identified as continuing to adjust to the increase in gas prices. Responded well to group support. Benefited from group support, encouragement, and feedback. Will continue in IOP to prevent decompensation, promote mood stability, and increase healthy coping application. Narrative Note: []
--- NOTE | 2024-12-01 10:00 | BH.SGPN.GN ---
Behaviors/Verbalizations/Mental Status: []Pt alert and oriented, casually dressed and groomed. Eye contact good. Motor activity appropriate. Speech within normal limits. Affect congruent, mood dysthymic. Thoughts linear, logical, no signs of hallucinations or delusions. Client Response/Progress/Benefit: [] Pt was an active participant in group discussion and experiential activity. Attentive during psychoeducation on resilience and provided input throughout. Participated in interactive discussion with peers on the definition of resilience and where it comes from. Group identified that resiliency can be impacted by; past experiences, upbringing, and personality traits. Able to relate experiential activity of group juggle to topics of resilience. Worked with peers in small group in which they identified factors that contribute to resilience and did well providing ideas. Benefited from increased awareness of resilience and the factors that contribute to building resilience. Will continue in IOP tx to increase distress tolerance skills, improve self-confidence, and improve daily functioning. ? Narrative Note: []
--- NOTE | 2024-12-01 11:00 | BH.SGPN.GN ---
Behaviors/Verbalizations/Mental Status: [] Eye contact is good. Motor activity is appropriate. Appearance is casual. Speech is Appropriate. Mood is depressed. Affect is congruent. Thoughts are linear and logical. No evidence of psychosis. Client Response/Progress/Benefit: [] Pt responded well to session AEB completing the resilience worksheet provided. Pt actively participated in the discussion and worked cooperatively with group to identify strategies to enhance each of the components discussed. Pt was able to identify resiliency traits they already possess as well as areas related to resilience to focus on in the future which included accepting that change is part of living. Pt seemed to benefit from discussing strategies for improving personal resilience and identifying resilience traits Pt already possesses. Will continue IOP tx to prevent decompensation, increase healthy coping skills, and improve functioniong. Narrative Note: []
== END 2024-12-04 23:59 ==
LOC: BHIOP 08:00
PROVIDERS: Referring Provider Internal Medicine; Visit Provider Internal Medicine
DX: F33.2 Major depressive disorder, recurrent severe without psychotic features (principal); F41.1 Generalized anxiety disorder
CPT/HCPCS: S9480; 90837; 90853

== ENCOUNTER 2024-12-06 07:16 | Outpatient (RCR) | payer OTHER, SELFPAY ==
--- NOTE | 2024-12-06 09:05 | BH.SGPN.GN ---
Behaviors/Verbalizations/Mental Status: [] Eye contact is good. Motor activity is appropriate. Appearance is casual. Speech is Appropriate. Mood is euthymic. Affect is full. Thoughts are linear and logical. No evidence of psychosis. Reviewed daily check in sheet and pt's suicidal ideations and intent are at baseline. Client Response/Progress/Benefit: [] Pt was an active participant in group discussions. Attentive. Daily symptom tracker notes 3/5 for depression and 2/5 for agitation. Shared with the group that she is feeling ?tired and anxious? today. Able to identify coping strategies used over the weekend for emotion regulation. She ?stepped outside her comfort zone? on two occasions in an effort to be more social and engage. Progress noted. Benefited from group support, encouragement, and feedback. Will continue in IOP to maintain safety, prevent decompensation, and improve functioning to return to work. Narrative Note: []
--- NOTE | 2024-12-06 10:10 | BH.SGPN.GN ---
Behaviors/Verbalizations/Mental Status: [] Eye contact is good. Motor activity is appropriate. Appearance is casual. Speech is Appropriate. Mood is euthymic. Affect is congruent. Thoughts are linear and logical. No evidence of psychosis. Client Response/Progress/Benefit: [] Pt was an active participant during interactive group discussions. Attentive during psychoeducation on the six types of boundaries (physical, emotional, intellectual, sexual, time, and material) AEB note-taking and providing input. Along with peers contributed to interactive discussion on defining what a boundary is in mental health. Pt along with peers identified challenges to setting boundaries such as guilt, feeling selfish, negative past experiences, fear of conflict, and limited knowledge on setting boundaries. Pt along with peers identified the benefits to setting boundaries such as better relationships, increased time for self-care, and increased confidence, and feeling more heard. Group discussed the mental health benefits to establishing boundaries at work, school, and home. Pt benefited from increased awareness and insight on the importance/benefit to setting health boundaries. Will continue in IOP improve daily functioning, improve healthy coping skills, and prevent decompensation.
--- NOTE | 2024-12-06 11:10 | BH.SGPN.GN ---
Behaviors/Verbalizations/Mental Status: []Pt alert and oriented, casually dressed and groomed. Eye contact good. Motor activity appropriate. Speech within normal limits. Affect congruent, mood content. Thoughts linear, logical, no signs of hallucinations or delusions. Client Response/Progress/Benefit: [] Client responded well to session AEB listening attentively to peers, providing input, as well as taking notes throughout. Group discussed different styles of boundary setting. Participated in small group discussion brainstorming various strategies for improving healthy boundary setting. Pt took time to complete reflection on which skills would like to implement to improve boundaries. Plans to challenge self by starting with more direct statements rather than being vague about a boundary. Seemed to benefit from increased awareness of how different boundary styles can impact mental health. Will continue IOP tx prevent decompensation, increase use of healthy coping skills, and reduce negative thinking patterns. Narrative Note: []
--- NOTE | 2024-12-07 09:05 | BH.SGPN.GN ---
Behaviors/Verbalizations/Mental Status: [] Eye contact is good. Motor activity is appropriate. Appearance is casual. Speech is Appropriate. Mood is depressed. Affect is congruent. Thoughts are linear and logical. No evidence of psychosis. Reviewed daily check in sheet and suicidal thoughts are at baseline. Client Response/Progress/Benefit: [] Pt was an active participant in group discussions. Attentive. Daily symptom tracker notes /5 for depression, anxiety, and irritability. SI-baseline. ? I?ve been ignoring my mental health?. She discussed utilizing distraction as primary coping skill. She did not elaborate further aside from superficial events since last IOP visit. Progress noted. Benefited from group support, encouragement, and feedback. Will continue in IOP to maintain safety, prevent decompensation, increase healthy coping, and improve functioning. Narrative Note: []
--- NOTE | 2024-12-07 10:10 | BH.SGPN.GN ---
Behaviors/Verbalizations/Mental Status: [] Client alert and oriented, casually dressed and groomed. Eye contact good. Motor activity appropriate. Speech within normal limits. Affect congruent, mood content. Thoughts linear, logical, no signs of hallucinations or delusions. Client Response/Progress/Benefit: [] Client responded well to session AEB contributing to discussion, taking notes, and listening attentively to others. Group discussed the benefits of managed anger and anger as a secondary emotion. Client participated in anger iceberg discussion. Group reported outward personal signs of anger as lashing out verbally, physical fights, destruction of property, self-harm, and self-sabotage. Group Identified underlying emotions that contribute to anger including being dismissed, rejection, assumptions, being lied too, and micromanaging. Appeared to benefit from increased knowledge of the underlying emotions that impact anger and increased self-awareness of the internal and external consequences of anger. Client will continue IOP program to stabilize mood, improve self-confidence, and prevent decompensation. Narrative Note: []
--- NOTE | 2024-12-07 11:10 | BH.SGPN.GN ---
Behaviors/Verbalizations/Mental Status: [] client alert and oriented, casually dressed and groomed. Eye contact good. Motor activity appropriate. Speech within normal limits. Affect congruent, mood euthymic. Thoughts linear, logical, no signs of hallucinations or delusions. Client Response/Progress/Benefit: [] Client was an engaged participant throughout group AEB client providing input throughout discussion. Client contributed to the continued discussion of how people express anger as well as the underlying emotions of anger. Client participated in group activity that highlighted strategies to cope with anger. Group brainstormed healthy coping skills to help prevent anger and cope with it in the moment which included: mindfulness, deep breathing, journaling, going outside, and music. Client stated something they learned today is it is okay to feel anger, it's important to focus on how one manages anger. Client appeared to benefit from brainstorming with the group potential strategies to manage anger in healthy ways. Recommended continued IOP to increase healthy coping, challenge distortions, and prevent decompensation.
--- NOTE | 2024-12-08 09:05 | BH.SGPN.GN ---
Behaviors/Verbalizations/Mental Status: [] Eye contact is good. Motor activity is appropriate. Appearance is disheveled. Speech is Appropriate. Mood is anxious. Affect is full. Thoughts are linear and logical. No evidence of psychosis. Reviewed daily check in sheet and suicidal thoughts are at baseline. Client Response/Progress/Benefit: [] Pt was an active participant in group discussions. Attentive. Daily symptom tracker notes 4/5 for anxiety and 2/5 for depression. Able to identify mental health wins and healthy habits. She shared examples of overthinking and excessive rumination which can impact her overall mood as well as functioning. Primarily ruminating on finances and future. Feels anxious and tired today. She was able to identify self-care and coping strategies to reduce ruminations however vague on their effectiveness. Lminted progress noted. Benefited from group support, encouragement, and feedback. Will continue in IOP to maintain safety, increase heathy coping, improve functioning to return to work, and prevent decompensation. Narrative Note: []
--- NOTE | 2024-12-08 10:10 | BH.SGPN.GN ---
Behaviors/Verbalizations/Mental Status: []Eye contact is good. Motor activity is appropriate. Appearance is casual. Speech is Appropriate. Mood is anxious. Affect is congruent. Thoughts are linear and logical. No evidence of psychosis. Client Response/Progress/Benefit: [] Pt participated in the group discussions AEB providing input and taking notes at times. Attentive during psychoeducation on SMART Goal Setting. Pt worked with group to identify common barriers to goal setting which included; mental health struggles, energy/motivation, limited support, change to routine, lack or resources, having unrealistic goals, and our internal expectations. Group also identified benefits of goals, which included: promotes a sense of accomplishment, it challenges oneself, can boast confidence, and can cause positive change/growth. Pt able to identify personal benefits to goal setting. Benefited from increased awareness of mental health benefits of goals as well as psychoeducation on SMART goal criteria. Will continue in IOP to improve daily functioning, increase healthy coping skills, and prevent decompensation.
--- NOTE | 2024-12-08 11:10 | BH.SGPN.GN ---
Behaviors/Verbalizations/Mental Status: [] Pt alert and oriented. Appearance is casual, hygiene is appropriate. Eye contact good. Motor activity appropriate. Speech within normal limits. Affect is anxious. Mood is congruent. Thoughts linear, logical, no signs of hallucinations or delusions. Client Response/Progress/Benefit: [] Pt was engaged during discussion and experiential activity. Completed the worksheet challenging them to develop a personal SMART goal. Pt chose a SMART goal to stretch every morning when they wake up. Believes this goal will benefit them by getting moving in the morning. Identified potential obstacle is forgetfulness. Pt able to identify several solutions like setting an alarm to help overcome barriers. Benefited from this group by developing a short-term SMART goal related to mental health. Will continue IOP to challenge distorted thoughts, increase consistent use of healthy coping skills, and prevent decompensation.
--- NOTE | 2024-12-08 15:24 | BH.MDN ---
Multi-Disciplinary Note Note 60-min Individual: Time Started:: 12:05 Date: 12/08/24 Time Stopped:: 13:00
--- NOTE | 2024-12-13 09:00 | BH.SGPN.GN ---
Behaviors/Verbalizations/Mental Status: [] Pt alert and oriented, casually dressed and groomed. Eye contact good. Motor activity appropriate. Speech within normal limits. Affect congruent, mood nervous. Thoughts linear, logical, no signs of hallucinations or delusions. Reviewed pt?s symptom tracker, no risk for suicidal ideation, plan, or intent 12/14/24. Client Response/Progress/Benefit: []Pt was an active participant in group discussions. Attentive. Able to identify mental health wins including ?we toured an apartment and we loved it, so I hope we get it and I had a blast at the fair.? Pt's stressor today is ?I?m anxious about potentially not getting the apartment.? The group offered pt suggests managing this stressor and emotional support which pt reported was helpful. Pt is feeling ?tired/nervous/anxious? this morning. Pt receptive to feedback from peers. Benefited from group support, encouragement, and feedback. Progress noted. Will continue IOP tx to increase self-confidence, reduce negative thinking patterns, and improve daily functioning. ? Narrative Note: []
--- NOTE | 2024-12-13 10:15 | BH.SGPN.GN ---
Behaviors/Verbalizations/Mental Status: [] Eye contact is good. Motor activity is appropriate. Appearance is casual. Speech is Appropriate. Mood is anxious. Affect is congruent. Thoughts are linear and logical. No evidence of psychosis. Client Response/Progress/Benefit: [] Pt engaged in session AEB client listening attentively to peers and providing input. Attentive and contributed to discussion as group worked on defining?self-confidence?and identifying benefits of?self-confidence which included; increase greta/engagement, improved quality of relationships, improved problem solving, confidence to take risks, and increased sense of self-worth. Also participated during interactive discussion on factors that impact one's self confidence such as trauma, upbringing, economic status, and current/past relationships. Benefited from increased education on?self-confidence?and what effects it. Pt will continue IOP to prevent decompensation, stabilize mood, increase healthy coping, and improve functioning. Narrative Note: []
--- NOTE | 2024-12-13 11:10 | BH.SGPN.GN ---
Behaviors/Verbalizations/Mental Status: [] Client alert and oriented, casually dressed and groomed. Eye contact good. Motor activity appropriate. Speech within normal limits. Affect congruent, mood anxious. Thoughts linear, logical, no signs of hallucinations or delusions. Client Response/Progress/Benefit: [] Pt engaged in session AEB client listening attentively to peers and providing input. Attentive and contributed to discussion as group worked on identifying thought patterns and behaviors that negatively affect self-confidence. Pt identified behaviors that affect their confidence as: lack of self-care and negative self-talk. Engaged in confidence building activity and worked with the group to identify strategies for improving self-confidence. Pt identified plans to begin setting small daily self-care goals as a means of improving own self-confidence. Benefited from increased education on self-confidence building skills. Pt will continue IOP tx to increase self-confidence, improve emotional regulation skills, and prevent decompensation. Narrative Note: []
--- NOTE | 2024-12-13 15:13 | BH.MTP ---
[facility] Treatment Plan Patient Information Program Physician:: Dr. Winston Primary Therapist:: Amalia Yuan [facility] Psychiatric Diagnoses Psychiatric Diagnoses:: MDD (major depressive disorder), recurrent episode, severe Generalized Anxiety Disorder Diagnosis Code(s):: F33.2 Estimated LOS Estimated LOS (in weeks):: 6 Problem/Goal #1 Problem/Goal #1 Stated Goal:: Stabilize anxiety level while increasing ability to function on daily basis. Description of Barriers: Potential barriers to treatment include: distorted thoughts, low motivation, low energy, and avoidance of anxious situations. Functional Impact: Patient was seen in [facility] ED for SI and worsening depression 11/20/2024 and assessed by [facility] crisis team and was referred to [facility]. PT has struggled with her mental health since high school and had further decline starting last January 2024 after her fianc? attempted suicide and has slowly decompensated since that time. Also had increased anxiety triggered by starting a new job July 2023 and around the same time patient stopped taking their medicine due to loss of insurance coverage. Pt endorses low motivation, anhedonia, poor concentration, excessive guilt, poor appetite, and decreased sleep. Objectives Objective #1: Stated Objective: Client will learn and implement 2-3 calming skills to reduce overall anxiety and manage anxiety symptoms. Interventions: Therapist and group sessions will help client identify physiological warning signs of anxiety, increase awareness of thoughts that increase anxiety, and identify behaviors that reinforce anxious symptoms. Group and individual counseling will teach client calming skills to help manage anxious symptoms. Discharge Criteria: Client will have achieved this goal when can verbalize at least 2 calming skills and reports skills successfully help reduce anxious symptoms. Target Date: 01/05/25 Review Date: 12/22/24 Objective #2: Stated Objective: Client will identify 2-3 anxiety triggers and 2 coping skills to use when feeling anxious. Interventions: Therapist will assist client in exploring what triggers anxiety and teach client coping strategies to effectively manage anxiety symptoms. Discharge Criteria: Client will have met this goal when can identify at least 2 triggers to anxiety and verbalize two healthy ways to cope with feelings of anxiety. Target Date: 01/05/25 Review Date: 12/22/24 Problem/Goal #2 Problem/Goal #2 Stated Goal:: Client will decrease depression, low motivation, and passive thoughts of due to Major Depression Disorder through Intensive Outpatient Program.? Description of Barriers: Potential barriers to treatment include: distorted thoughts, low motivation, low energy, and avoidance of anxious situations. Functional Impact: Patient was seen in [facility] ED for SI and worsening depression 11/20/2024 and assessed by [facility] crisis team and was referred to IOP. PT has struggled with her mental health since high school and had further decline starting last January 2024 after her fianc? attempted suicide and has slowly decompensated since that time. Also had increased anxiety triggered by starting a new job July 2023 and around the same time patient stopped taking their medicine due to loss of insurance coverage. Pt endorses low motivation, anhedonia, poor concentration, excessive guilt, poor appetite, and decreased sleep. Objectives Objective #1: Stated Objective: Client will learn and utilize 2-3 healthy coping strategies to manage depressive symptoms. Interventions: Therapist will utilize CBT techniques to assist client with understanding the connection between thoughts, feelings and behaviors. Education will be provided on behavioral activation. Therapist will assist client in learning internal coping strategies to manage depressive symptoms, along with helping client identify triggers. Discharge Criteria: Client will have achieved this goal when can verbalize and has practiced at least 2 healthy coping strategies that successfully manage depressive symptoms. Target Date: 01/05/25 Review Date: 12/22/24 Objective #2: Stated Objective: Client will identify and replace 2-3 negative thinking patterns that reinforce depressive symptoms. Interventions: Therapist will assist client in developing an awareness of the cognitive messages that reinforce depressive thinking. Therapist will also assist client in challenging negative thinking patterns. Discharge Criteria: Client will have achieved this goal when can identify at least 2 negative thinking patterns, replace negative thinking with more positive, affirmative messages and state no longer having thoughts of hurting self. Target Date: 01/05/25 Review Date: 12/22/24
--- NOTE | 2024-12-14 09:00 | BH.SGPN.GN ---
Behaviors/Verbalizations/Mental Status: [] Eye contact is good. Motor activity is appropriate. Appearance is casual. Speech is Appropriate. Mood is content. Affect is congruent. Thoughts are linear and logical. No evidence of psychosis. Reviewed daily check in sheet and pt reports 2/5 for suicidal thoughts and 1/5 for intent. Client Response/Progress/Benefit: [] Pt participated when prompted. Attentive. Daily symptom tracker notes 5/5 for anxiety, 2/5 for irritability and 3/5 for depression. Emotion for today is anxious. Mental health wins reported to be using reframing and thought challenging skills to manage anxiety as she waits to learn if approved for an apartment. Additional win noted as continuing to make progress in looking for a part-time job. Current stressor noted as ongoing issues with consistently thought challenging. Progress noted per pt report. Benefited from group support, encouragement, and feedback. Will continue in IOP to prevent decompensation, improve mood stability, and increase healthy coping. Narrative Note: []
--- NOTE | 2024-12-14 10:10 | BH.SGPN.GN ---
Behaviors/Verbalizations/Mental Status: []Pt alert and oriented, casually dressed and groomed. Eye contact good. Motor activity appropriate. Speech within normal limits. Affect congruent, mood euthymic. Thoughts linear, logical, no signs of hallucinations or delusions. Client Response/Progress/Benefit: []Pt was an active participant in group discussion and activity. Attentive during psychoeducation. Along with peers, pt was able to identify barriers to taking action in their life. Identified several symptoms and stressors that pt feels are holding them back from progress. Pt stated biggest thing holding her back is her anxiety. Pt able to identify how these things have negatively impacted progress. Benefited from increased self-awareness of obstacles. Pt will continue IOP to challenge distortions, improve healthy coping skills, and prevent decompensation.
--- NOTE | 2024-12-14 11:10 | BH.SGPN.GN ---
Behaviors/Verbalizations/Mental Status: []Pt alert and oriented, casually dressed and groomed. Eye contact good. Motor activity appropriate. Speech within normal limits. Affect congruent, mood engaged. Thoughts linear, logical, no signs of hallucinations or delusions. Client Response/Progress/Benefit: [] Pt responded well to session, taking notes and participating in worksheet discussion. Pt connected with the discussion on action steps, and this helped pt learn how to set goals differently. Pt set a SMART goal that pt will ?work at my avoidance by doing things in 5 or 15 minutes intervals.? Pt noted that she can benefit from asking for help from her fiance and using calming skills. ?Appeared to benefit from identifying a small goal to benefit mental health. Pt is to continue IOP tx to promote use of healthy coping skills, improve daily functioning, and increase self-confidence. Narrative Note: []
--- NOTE | 2024-12-16 09:05 | BH.SGPN.GN ---
Behaviors/Verbalizations/Mental Status: [] Eye contact is good. Motor activity is appropriate. Appearance is casual. Speech is Appropriate. Mood is depression and anxious. Affect is congruent. Thoughts are linear and logical. No evidence of psychosis. Reviewed daily check in sheet and suicidal ideations are at baseline. Client Response/Progress/Benefit: [] Pt participated at times during the group discussions. Attentive. Daily symptom tracker notes 5/5 for anxiety and 3/5 for depression. Also reports 2/5 for self-harm urges. Ruminating on several situational stressors. No a lot of wins. These stressors are causing sleep issues. Limited insight regarding catastrophizing thoughts and predicting worst case scenarios for even small events. Limited progress. Benefited from group support, encouragement, and feedback. Will continue in IOP to prevent decompensation, increase healthy coping, and improve functioning. Narrative Note: []
--- NOTE | 2024-12-16 10:15 | BH.SGPN.GN ---
Behaviors/Verbalizations/Mental Status: []Pt alert and oriented, casually dressed and groomed. Eye contact fair. Motor activity appropriate. Speech within normal limits. Affect constricted, mood anxious. Thoughts linear, logical, no signs of hallucinations or delusions. Client Response/Progress/Benefit: [] Pt was attentive during psychoeducation and participated in group activity. Group discussed what influences a person?s perspective and how perspective can positively or negatively impact mental health treatment. Group identified several factors that can influence perspective which include; mood, current stressors, sleep, health, hunger, and several others.?Pt appeared to benefit from increasing awareness of different perspectives and how they can affect mental health. Pt noted that their perspective today is in between negative and positive as pt feels they are using healthy coping skills, but still struggles with guilt. Pt will continue IOP tx improve self-confidence, increase distress tolerance, and promote mood stability. Narrative Note: []
--- NOTE | 2024-12-16 10:45 | PCM.BH.PN_ITS ---
Intake Vital Signs 11/25/24 09:45 12/16/24 10:45 Height 1.55 m 1.55 m Weight: 74.843 kg BP 121/75 H Pulse 69 Intake Visit Reasons: f/u anxiety, f/u mdd Allergies No Known Allergies Allergy (Verified 11/25/24 09:47) Medications ?Medication ?Instructions ?Recorded ?Confirmed ?Type fluoxetine 20 mg capsule 20 mg PO DAILY 30 days #30 c aps 12/16/24 Rx HPI () History of Present Illness History provided by: patient Chief complaint: Anxious HPI: -Current psychiatric medications: Prozac 10mg. -SUBJECTVE: They report that they have a lot of anxiety, has a lot of job applications out and also is going to be moving in with fianc? and friends and they are waiting application approval, all of this has caused increased anxiety though does not report depressed mood. Has not been able to sleep this past week very much due to anxiety but it seems largely situational. Is taking the Prozac and given a low-dose has not noticed much benefit but has not had any side effects and is interested in increasing this. Reports appetite fair but has been eating a little bit less due to being on a budget, still sometimes wants to press herself up against a wall or bump hand on head to help soothe anxiety but does not want to seriously harm self and has no thoughts of killing himself. Denies AH/VH. Exam Mental Status Exam- Psych () Appearance casually dressed, adequately groomed and no apparent distress Attitude cooperative and calm Activity/Motor Behavior MSE activity/motor behavior finding no adventitious movements Speech regular rate and regular volume Mood euythmic Affect full range Thought Process linear and logical Thought Content no delusions and no hallucinations Suicidal Ideation none Homicidal Ideation none Attention intact Concentration intact Sensorium/Orientation awake and alert Memory/Cognition intact Insight fair Judgement fair Assessment & Plan () Assessment & Plan (1) MDD (major depressive disorder), recurrent episode, severe: Plan: Not presently reporting depressed mood, mostly situational anxiety, overall doing well in the program, tolerating the Prozac at low-dose, will increase to 20 mg to help improve overall level of anxiety and depression, patient agreeable and verbalizes understanding. Did try to set reasonable expectation that this increase likely will not completely fix the situational stressors and does take time to work and Jessica verbalized their understanding. Will trial increased dose. Supportive care provided. (2) GETACHEW (generalized anxiety disorder): Plan: As above Medications: New fluoxetine 20 mg PO DAILY 30 days 30 caps 0RF Discontinued fluoxetine Discontinued Reason: MD Ordered 10 mg PO DAILY 30 caps 0RF Visit Details Comments: Spent a total of [ ] minutes on the date of the service which included [ ]. Charges/Coding Behavior Health Behavior Health EST Pt E/M: 15679 Est Pt Level IV
--- NOTE | 2024-12-16 15:25 | BH.MDN ---
Multi-Disciplinary Note Note 60-min Individual: Time Started:: 11:05 Date: 12/16/24 Time Stopped:: 12:00
--- NOTE | 2024-12-20 09:05 | BH.SGPN.GN ---
Behaviors/Verbalizations/Mental Status: [] Pt alert and oriented, casually dressed and groomed. Eye contact good. Motor activity appropriate. Speech within normal limits. Affect constricted, mood euthymic. Thoughts linear, logical, no signs of hallucinations or delusions. Reviewed pt?s symptom tracker, no risk for suicidal ideation, plan, or intent 12/20/24. Client Response/Progress/Benefit: []Pt was an active participant in group discussions. Attentive. Able to identify mental health wins including getting the apartment that pt and their roommates had been hoping for and having two positive experiences at job interviews last week. Pt's stressor today is ?we got the apartment, but now we have to move and money.? The group offered pt suggests managing this stressor and emotional support which pt reported was helpful. Pt is feeling ?relieved.? this morning. Pt receptive to feedback from peers. Benefited from group support, encouragement, and feedback. Progress noted. Will continue IOP tx to promote mood stability, reduce negative thinking patterns, and gain self-confidence. Narrative Note: []
--- NOTE | 2024-12-20 10:10 | BH.SGPN.GN ---
Behaviors/Verbalizations/Mental Status: []Eye contact is fair. Motor activity is appropriate. Appearance is casual. Speech is Appropriate. Mood is content. Affect is constricted. Thoughts are linear and logical. No evidence of psychosis. Client Response/Progress/Benefit: []Pt was an active participant in group discussions. Attentive during psychoeducation on the 4 communication styles (Passive, Passive-Aggressive, Aggressive, and Assertive) and the obstacles to effective communication. Contributed during interactive discussion on the benefits of communicating effectively. Worked well with peers to identify the benefits and disadvantages to the different communication styles. Pt believes that they are primarily passive and can be assertive when feels needs are not met. Benefited from increased understanding of communication styles and how these can impact effective communication. Will continue in IOP to improve mood stability, challenge negative thoughts, and prevent decompensation. Narrative Note: []
--- NOTE | 2024-12-20 11:10 | BH.SGPN.GN ---
Behaviors/Verbalizations/Mental Status: []Pt alert and oriented, casually dressed and groomed. Eye contact good. Motor activity restless. Speech within normal limits. Affect congruent, mood euthymic. Thoughts linear, logical, no signs of hallucinations or delusions. Client Response/Progress/Benefit: [] Pt responded well to session AEB pt listening attentively to others and providing input during group discussion on the pay offs and costs of the different communication styles. Pt able to connect how current communication style impacts mental health. Connected with peers? comments about the importance of using assertive communication. Pt seemed to benefit from increasing awareness of healthy strategies to improve communication and worked with peers during the experiential activity to practice assertive communication. Pt engaged in self-reflection activity in which they identified what they want to work on to improve communication. Will continue IOP tx to challenge negative thoughts, increase consistent use of healthy coping skills, and prevent decompensation.
--- NOTE | 2024-12-21 09:00 | BH.SGPN.GN ---
Behaviors/Verbalizations/Mental Status: [] Client alert and oriented, casual appearance. Eye contact good. Motor activity appropriate. Speech within normal limits. Affect congruent, mood anxious. Thoughts linear, logical, no signs of hallucinations or delusions. Reviewed client's symptom tracker, no risk for suicidal ideation, plan, or intent. Client Response/Progress/Benefit: [] Client responded well to session AEB listening to others and sharing thoughts/feelings. Client reported mental positive as getting the apartment they applied for and get the keys next Thursday. Client stated she is excited because this will be the first time she will be living independently. Client stated additional mental health positive as doing financially better than she expected. Client noted current stressor is feeling anxious about her upcoming move because has to pack and move all her stuff. Appeared to benefit from support from peers. Will continue IOP tx to increase healthy coping skills, challenge distorted thoughts, and prevent decompensation.
--- NOTE | 2024-12-21 10:10 | BH.SGPN.GN ---
Behaviors/Verbalizations/Mental Status: []Pt alert and oriented, disheveled appearance. Eye contact fair. Motor activity appropriate. Speech within normal limits. Affect congruent, mood euthymic. Thoughts linear, logical, no signs of hallucinations or delusions Client Response/Progress/Benefit: [] Pt took notes and contributed to group discussions. Attentive during psychoeducation on growth mindset. Interactive group discussion on fixed mindset in which group verbalized their current fixed mindsets and how they affect their mental health. Pt shared common fixed mindset thoughts they have. Pt shared a personal fixed thought my friends only tolerate me, my anxiety will always control my feelings, and I peaked with my art in high school.? Pt able to connect negative impact fixed thoughts have on functioning. Pt benefited from increased awareness of growth mindset and fixed thoughts and how fixed thoughts impact their mental health. Will continue IOP tx to improve daily functioning, increase self-confidence, and reinforce healthy coping skills. Narrative Note: []
--- NOTE | 2024-12-21 11:15 | BH.SGPN.GN ---
Behaviors/Verbalizations/Mental Status: []Pt alert and oriented, casually dressed and groomed. Eye contact good. Motor activity appropriate. Speech within normal limits. Affect congruent, mood content. Thoughts linear, logical, no signs of hallucinations or delusions. Client Response/Progress/Benefit: [] Pt was an active participant during activity and discussion. Pt did well to remain attentive and participate as group worked on identifying characteristics and benefits of adopting a growth mindset. Worked with fellow participants in reframing the example fixed thoughts into growth mindset thoughts. Pt worked on changing own fixed thought. Pt?s reframed thought was ?Hard things take time and I am continuing to learn as I go? Pt attentive during discussion about different strategies that can help with fostering a growth mindset. Pt appeared to benefit from challenging own thoughts and engaging in the activity. Pt will continue IOP tx to increase distress tolerance, improve self-compassion, and prevent decompensation. Narrative Note: []
--- NOTE | 2024-12-23 09:00 | BH.SGPN.GN ---
Behaviors/Verbalizations/Mental Status: [] Eye contact is good. Motor activity is appropriate. Appearance is casual. Speech is Appropriate. Mood is euthymic. Affect is full. Thoughts are linear and logical. No evidence of psychosis. Reviewed daily check in sheet and pt denies SI, plan, or intent as of this date 12/23/24. Client Response/Progress/Benefit: [] Pt was an active participant in group discussions. Attentive. Did well to identify 2 mental health wins, which included discovering that their apartment down payment is not as expensive as they thought so they have extra money to put towards furnishing and decorating it. Additional win noted as making plans to spend time with their future roommates this afternoon and are excited about planning the upcoming move. Stressor noted as packing up their stuff for the move. Appeared to benefit from provided support, encouragement, and feedback. Will continue IOP tx to improve mood stability, develop healthy coping repertoire, and prevent decompensation. Narrative Note: []
--- NOTE | 2024-12-23 10:10 | BH.SGPN.GN ---
Behaviors/Verbalizations/Mental Status: [] Pt alert and oriented, casually dressed and groomed. Eye contact good. Motor activity appropriate. Speech within normal limits. Mood: depressed. Affect: congruent. Thoughts linear, logical, no signs of hallucinations or delusions. Client Response/Progress/Benefit: [] Pt was an active participate during group discussions. Attentive during psychoeducation on self-sabotage and its impact on mental health. Worked with peers to define self-sabotage and identify reasons individuals perform self-sabotage behaviors (easy route at the time, feel as those we don't deserve any better, FOF, comfortable, etc). Pt identified the forms of self-sabotage that impact their mental health. Attentive during psychoeducation on types of self-sabotage; Procrastination, perfectionism, self-medication, poor communication,and chronic cancelling. Seemed to benefit from gaining awareness about the self-sabotage. Pt to continue IOP tx to prevent decompensation, increase healthy coping, and improve functioning to return to work.
--- NOTE | 2024-12-23 15:26 | BH.MDN ---
Multi-Disciplinary Note Note 30-min Individual: Time Started:: 11:15 Date: 12/23/24 Time Stopped:: 11:45
--- NOTE | 2024-12-27 09:00 | BH.SGPN.GN ---
Behaviors/Verbalizations/Mental Status: []Eye contact is good. Motor activity is appropriate. Appearance is casual. Speech is Appropriate. Mood is anxious and euthymic. Affect is congruent. Thoughts are linear and logical. No evidence of psychosis. Reviewed daily check in sheet and pt denies SI, plan, or intent as of this date 12/27/24. Client Response/Progress/Benefit: [] Pt was an active participant in group discussions. Attentive. Did well to identify 2 mental health wins, which included having a successful conversation with roommates regarding delegation of moving tasks. Reports they were supportive. Additional win noted as making progress on packing for the upcoming move. Stressor noted as having to call and set up the electric and gas for their new place. Appeared to benefit from provided support, encouragement, and feedback. Will continue IOP tx to improve mood stability, develop healthy coping repertoire, and prevent decompensation. Narrative Note: []
--- NOTE | 2024-12-27 10:10 | BH.SGPN.GN ---
Behaviors/Verbalizations/Mental Status: []Pt alert and oriented, casually dressed and groomed. Eye contact good. Motor activity appropriate. Speech within normal limits. Affect congruent, mood content. Thoughts linear, logical, no signs of hallucinations or delusions. Client Response/Progress/Benefit: [] Pt participated during the group discussion, providing input and remaining attentive during psychoeducation. Participated in experiential activity. Pt contributed during interactive discussion on the consequences of unhealthy expression of emotions. Worked with group to identify several consequences which included hurting relationships and isolating oneself. Contributing during interactive discussion on common potholes to effectively communicating. Pt was able to relate and make connections between the experiential activity and the overall topic, managing emotions through activity by ?allowing myself to trust others.? Benefited from increased awareness of how stress and emotions can impact one's ability to communicate. Will continue in IOP to promote mood stability, reduce avoidance, and improve self-confidence. Narrative Note: []
--- NOTE | 2024-12-27 11:10 | BH.SGPN.GN ---
Behaviors/Verbalizations/Mental Status: []Eye contact is good. Motor activity is appropriate. Appearance is disheveled. Speech is Appropriate. Mood is calm. Affect is congruent. Thoughts are linear and logical. No evidence of psychosis. Client Response/Progress/Benefit: [] Client engaged in session AEB client listening attentively to peers and providing input. Attentive during psychoeducation on 4 zones of regulation. Pt able to identify feelings and behaviors for each zone. Pt identified coping skills one can use to support self in each zone. Pt stated belief that pt is in the green/yellow zone today. Pt reports wanting to work on ?asking for help? so pt can get closer to the green zone today. Benefited from increased education on zones of regulation or stages of alertness for emotions and healthy coping skills to use for each zone. Pt will continue IOP tx to promote use of healthy coping skills, improve daily functioning, and reduce negative thinking patterns. Narrative Note: []
--- NOTE | 2024-12-28 09:00 | BH.SGPN.GN ---
Behaviors/Verbalizations/Mental Status: [] Pt alert and oriented, casually dressed and groomed. Eye contact good. Motor activity appropriate. Speech within normal limits. Affect congruent, mood calm. Thoughts linear, logical, no signs of hallucinations or delusions. Reviewed pt?s symptom tracker, low risk for suicidal ideation, plan, and intent 12/28/24. Client Response/Progress/Benefit: []Pt was an active participant in group discussions. Attentive. Per patients daily symptom tracker, pt indicates a 3/5 for depression and a 4/5 for anxiety, with 5 being severe. Pt reported mental health wins as packing up their apartment to move, and being able to help their partner overcome the anxiety of making a phone call. The client stated feeling excited about the move and has been proactive in packing and preparation. Their current stressor is one of their roommates mother, who they report as controlling and overbearing. Pt states that they are worried that the mother may not respect the boundaries of the roommate or anyone else in the apartment. However, pt states that their roommate has expressed clear boundaries and no negative interactions have occurred. Pt was supportive and attentive to others in the group. Pt seemed to benefit from support from peers. Will continue IOP tx to promote healthy coping mechanisms, reduce negative thinking patterns, and gain self-confidence.
--- NOTE | 2024-12-28 10:10 | BH.SGPN.GN ---
Behaviors/Verbalizations/Mental Status: [] Client alert and oriented, casually dressed and groomed. Eye contact good. Motor activity appropriate. Speech within normal limits. Affect congruent, mood euthymic Thoughts linear, logical, no signs of hallucinations or delusions. Client Response/Progress/Benefit: [] Client responded well to session AEB taking notes throughout and listening attentively to others. Client was attentive throughout group activity identifying famous individuals and how they overcame failure to be successful. Client helped group identify how fear of failure can impact mental health and relationships. Client personally identified it leads to self-sabotage. Client participated in experiential activity, working with group members to problem solve. Appeared to benefit from increased knowledge of fear of failure. Will continue IOP tx to improve functioning, reduce distorted thinking patterns, and reduce avoidance. Narrative Note: []
--- NOTE | 2024-12-28 15:25 | BH.MDN ---
Multi-Disciplinary Note Note 45-min Individual: Time Started:: 11:10 Date: 12/28/24 Time Stopped:: 11:50
--- NOTE | 2025-01-03 10:10 | BH.SGPN.GN ---
Behaviors/Verbalizations/Mental Status: [] Client alert and oriented, casually dressed and groomed. Eye contact fair. Motor activity appropriate. Speech within normal limits. Affect congruent, mood euthymic and anxious. Thoughts linear, logical, no signs of hallucinations or delusions. Client Response/Progress/Benefit: [] Client responded well to session, contributing to discussion and engaged during the activity. Group identified the benefits of change which included: increased confidence, progressing towards goals, and improving mental and physical health. Worked with the group to identify barriers to change, which included: uncomfortable emotions such as anxiety, lack of energy, lack of supports, and negative influences. Client participated along with group in activity where they identified and discussed the emotions related to change. Benefited from increased awareness and understanding of emotions, benefits, and barriers related to change. Will continue IOP tx to improve distress tolerance, improve confidence, and prevent decompensation.
--- NOTE | 2025-01-03 10:38 | BH.MDN_ITS ---
Multi-Disciplinary Note Note 45-min Individual: Time Started:: 09:12 Date: 01/03/25 Purpose of session/treatment goals addressed:: Purpose of session was to address goals 1 and 2 from [facility]. Eye Contact:: Good Motor Activity:: Appropriate Appearance:: Casual Speech:: Appropriate Mood:: Euthymic and Anxious (slightly) Affect:: Congruent Thoughts:: Linear, Logical and No evidence of hallucinations/delusions noted Staff Interventions:: thought challenging, CBT techniques, discharge plann ing, strengths perspective and taught coping skills Client Response:: Client reported they are doing overall well besides feeling very tired from moving all weekend into their new apartment. Client stated although the move has been anxiety provoking they have been able to manage their emotions effectively. Client reported their overall daily functioning has improved with being able to get things done in daily life. Client stated they have been on numerous job interviews over the last few weeks. 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 Client stated their anxiety will be decreased once they have a work plan because need to make sure have their finances are in place to be able to afford rent. Client reported now that they are feeling better they have noticed some issues within their relationship start to come back to the forefront. Client stated they believe the other stressors were distracting them from their relationship. Client receptive to discussion about having crucial conversations to bring issues to light instead of pushing things down. Client agreed it's important to continue to have conversations with their fianc?. Client stated besides noticing some minor relationship stress they are doing much better abhishek red to when they first started IOP. Client reported they are feeling ready for discharge from IOP because feels like has healthy skills to manage mental health and daily stress. Risks/Concerns:: Denies suicidal ideation, plan, or intention to date. Progress Toward Goals/Plan:: Progress noted with client reported decreased anxiety, improved daily functioning, and being able to manage emotions during her move to an apartment this past weekend. Client has been able to go on numerous job interviews and has been offered a part-time position. Client reported feeling ready to get back into the work environment. Plan is for client to continue IOP to maintain gains and solidify aftercare plans. Client plans to d/c from program next week. Client will reach out to [place] [facility] to see if their insurance is accepted.
== END 2025-01-03 23:59 ==
LOC: BHIOP 07:16
PROVIDERS: Referring Provider Internal Medicine; Visit Provider Internal Medicine
DX: F33.2 Major depressive disorder, recurrent severe without psychotic features (principal); F41.1 Generalized anxiety disorder
CPT/HCPCS: S9480; 90832; 90834; 90837; 90853

== ENCOUNTER 2025-01-04 08:03 | Outpatient (RCR) | payer OTHER, SELFPAY ==
--- NOTE | 2025-01-06 08:35 | PCM.BH.PN_ITS ---
Intake Vital Signs 12/16/24 10:45 01/06/25 08:35 Height 1.55 m 1.55 m Intake Visit Reasons: MDD Allergies No Known Allergies Allergy (Verified 11/25/24 09:47) Medications ?Medication ?Instructions ?Recorded ?Confirmed ?Type fluoxetine 20 mg capsule 20 mg PO DAILY 30 days #30 c aps 12/16/24 Rx HPI () History of Present Illness History provided by: patient Chief complaint: Follow-up MDD HPI: -Current psychiatric medications: Prozac 20 mg -SUBJECTVE: Feeling tired from moving but reports this is all secondary to moving and not fatigue/tiredness from being depressed. Sleeping little bit less then before but similar to when we followed up 3 weeks ago. Mood overall seems to be improved from before, does not think that there is a huge change with the Prozac but difficult to tell with all of the changes going on in their life. No SI/HI, no AH/VH. Seems to be tolerating medications out side effects. Exam Mental Status Exam- Psych () Appearance casually dressed, adequately groomed and no apparent distress Attitude cooperative and calm Activity/Motor Behavior MSE activity/motor behavior finding no adventitious movements Speech regular rate and regular volume Mood euythmic Affect full range Thought Process linear and logical Thought Content no delusions and no hallucinations Suicidal Ideation none Homicidal Ideation none Attention intact Concentration intact Sensorium/Orientation awake and alert Memory/Cognition intact Insight fair Judgement fair Assessment & Plan () Assessment & Plan (1) MDD (major depressive disorder), recurrent episode, severe: Plan: Overall doing fairly well despite recent stressors, is feeling tired but has been moving and having a lot of changes, tolerating the Prozac, has been on this dose for 3 weeks, discussed increasing though it has only been several weeks since initiation, she is comfortable keeping medicine where it is right now and considering increasing in the future if needed. Overall doing better, no SI/HI (2) GETACHEW (generalized anxiety disorder): Plan: As above Charges/Coding Behavior Health Behavior Health EST Pt E/M: 17304 Est Pt Level IV
--- NOTE | 2025-01-06 09:00 | BH.SGPN.GN ---
Behaviors/Verbalizations/Mental Status: [] Pt alert and oriented, casually dressed and groomed. Eye contact good. Motor activity appropriate. Speech within normal limits. Affect congruent, mood aggravated. Thoughts linear, logical, no signs of hallucinations or delusions. Reviewed pt?s symptom tracker, 1/5 with 5 being severe for risk for suicidal ideation, indicates a 1/5 for plan, and intent to kill self. Pt does not appear to be imminent risk to harm self. 01/06/25. Client Response/Progress/Benefit: []Pt was an active participant in group discussions. Attentive. Per patients daily symptom tracker, pt indicates a 3/5 for depression and a 3/5 for anxiety, with 5 being severe. Pt's mental health positive was their cats becoming more comfortable in their new apartment and getting along well with the roommates cat. Pt explained that this took some of the overall stress of the move off of them. Their other positive was finishing unpacking their apartment and continuing to settle in. Pt's stressor was their current job search. 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 The client also stated this this was aggravating from a financial standpoint as they now have rent to pay. Pt Will continue IOP tx to promote healthy coping mechanisms, reduce negative thinking patterns, and prevent decompensation.
--- NOTE | 2025-01-06 10:10 | BH.SGPN.GN ---
Behaviors/Verbalizations/Mental Status: [] Eye contact is good. Motor activity is appropriate. Appearance is casual. Speech is Appropriate. Mood is euthymic. Affect is congruent. Thoughts are linear and logical. No evidence of psychosis. Client Response/Progress/Benefit: [] Pt engaged participant AEB listening to others, engaging in activity, and providing feedback at times. Attentive during psychoeducation and provided insight into obstacles that impede mental wellness. Pt shared with group current mental health reality and desired mental health reality. Stating they would like to have more supports. Identified barriers to desired reality include: codependency and anxiety. Benefited from taking look at current mental health state and obstacles for progress. Pt to continue IOP tx to reduce reliance on maladaptive coping and prevent decompensation. Narrative Note: []
--- NOTE | 2025-01-06 11:10 | BH.SGPN.GN ---
Behaviors/Verbalizations/Mental Status: [] Eye contact is good. Motor activity is appropriate. Appearance is casual. Speech is Appropriate. Mood is euthymic. Affect is congruent. Thoughts are linear and logical. No evidence of psychosis. Client Response/Progress/Benefit: [] Pt was an engaged participant in group discussion and activity. Worked with group to identify strategies to help overcome barriers and obstacles to desired reality. Group developed strategies for the common barriers. Identified personal barriers to desired reality and choose one obstacle to work. Pt stated they want to utilize strategy of taking a break when needed. Pt seemed to benefit from increased repertoire of healthy coping skills/strategies to overcome common barriers to moving forward. Pt is to continue IOP to increase healthy coping skills, challenge distortions, and prevent decompensation. Narrative Note: []
--- NOTE | 2025-01-10 10:00 | BH.SGPN.GN ---
Behaviors/Verbalizations/Mental Status: []Eye contact is good. Motor activity is appropriate. Appearance is casual. Speech is Appropriate. Mood is dysthymic. Affect is constricted. Thoughts are linear and logical. No evidence of psychosis. Client Response/Progress/Benefit: [] Pt was an active participant in group discussions. Attentive during psychoeducation. Contributed during interactive discussions in which peers attempted to define crisis. Group identified crisis examples. Group also worked together to identify warning signs and unhealthy responses to crisis which included shutting down, isolation, avoidance, over-thinking, disordered eating, and self-harm. Pt identified top 3 warning signs as: stop brushing teeth, stop brushing hair, and not enjoying games. Benefited from increased understanding of crisis and awareness of personal responses to crisis. Pt will continue IOP tx to promote mood stability, combat distorted thoughts, and reinforce use of healthy coping skills. Narrative Note: []
--- NOTE | 2025-01-10 11:00 | BH.SGPN.GN ---
Behaviors/Verbalizations/Mental Status: []Pt alert and oriented, appropriate grooming/appearance. Eye contact good. Motor activity appropriate. Speech within normal limits. Affect congruent, mood anxious. Thoughts linear, logical, no signs of hallucinations or delusions. Client Response/Progress/Benefit: []Pt was an active participant in group discussions. Attentive during psychoeducation. In small group pt along with peers developed an active plan for their crisis warning signs. Pt identified three crisis warning signs as well as an action plan for each. One crisis warning sign was can't enjoy games. Pt identified strategies to help with this such as: paying with friends, trying new game, and try to play a old/unusual game. Benefited from increased awareness of crisis warning signs and by developing crisis intervention strategies. Will continue in IOP to increase consistent use of healthy coping skills, challenge distorted thoughts, and prevent decompensation.
--- NOTE | 2025-01-13 09:00 | BH.SGPN.GN ---
Behaviors/Verbalizations/Mental Status: [] Client alert and oriented, casual appearance. Eye contact good. Motor activity appropriate. Speech within normal limits. Affect congruent, mood euthymic. Thoughts linear, logical, no signs of hallucinations or delusions. Reviewed client's symptom tracker, no risk for suicidal ideation, plan, or intent. Client Response/Progress/Benefit: [] Client responded well to session AEB listening to others and sharing thoughts/feelings. Client reported mental positive as graduating from IOP today. Client noted she is feeling excited about completing the program however is nervous about not having the support and structure from the groups. Client noted additional positive as decreasing how often she is on her phone and the Internet which she has noticed this being beneficial for her mental health. Client noted current stressor as losing some contacts when her phone broke. Appeared to benefit from support from peers. Will discharge from IOP today. Narrative Note: []
--- NOTE | 2025-01-13 10:15 | BH.SGPN.GN ---
Behaviors/Verbalizations/Mental Status: []Pt alert and oriented, casually dressed and groomed. Eye contact good. Motor activity appropriate. Speech within normal limits. Affect constricted, mood euthymic. Thoughts linear, logical, no signs of hallucinations or delusions. Client Response/Progress/Benefit: [] Pt engaged and actively participating in discussion, taking notes. Pt attentive during psychoeducation about the window of tolerance and noted personal connections. Group identified what contributes to low distress tolerance. The group gained awareness of the three zones of tolerance and pt was able to identify what they look like in each zone. Pt shared personal signs in hyperarousal zone are: reassurance seeking, fidgeting, and spiraling. Pt shared signs in the window of tolerance, they feel able to focus, calm, and not in pain. Pt appeared to benefit from psychoeducation on distress tolerance and practicing self-reflection. Pt will discharge from IOP tx as pt has met their tx goals and no longer meets criteria for IOP level of care. Narrative Note: []
--- NOTE | 2025-01-13 11:15 | BH.SGPN.GN ---
Behaviors/Verbalizations/Mental Status: []Pt alert and oriented, casually dressed and groomed. Eye contact good. Motor activity appropriate. Speech within normal limits. Affect congruent, mood euthymic. Thoughts linear, logical, no signs of hallucinations or delusions. Client Response/Progress/Benefit: [] Pt responded well to session AEB taking notes and contributing to discussion throughout. Pt engaged as group continued discussion on distress tolerance and the mental health benefits of widening their overall Window of Tolerance. Pt engaged with group in experiential activity provided input on connections between variables in the activity and distress tolerance. Worked within small groups to identify strategies to increase distress tolerance and reduce hyper-arousal and hypo-arousal states. Identified wanting to begin implementing distress tolerance skills of: thought challenging, deep breathing, and more consistent self-care. Pt appeared to benefit from gaining insight and learning strategies to increase distress tolerance. Pt will d/c from IOP today and continue on outpatient level to prevent decompensation. Narrative Note: []
== END 2025-01-13 12:37 | disposition home or self-care (01) ==
LOC: BHIOP 08:03
PROVIDERS: Referring Provider Internal Medicine; Visit Provider Internal Medicine
DX: F33.2 Major depressive disorder, recurrent severe without psychotic features (principal); F41.1 Generalized anxiety disorder
CPT/HCPCS: S9480; 90832; 90853